=== PATIENT | female | born 1995 | race Caucasian/White ===

== ENCOUNTER 2017-05-29 14:59 | Emergency (ER) | payer BC, SELFPAY ==
[2017-05-29 15:17] VITALS: BP 136/81; PULSE 79; RESP 18; TEMP 36.9; O2SAT 98; BMI 21.6
--- NOTE | 2017-05-29 15:48 | [facility].EDABDPAI ---
ED Disposition Clinical Impression: Bloody diarrhea, External hemorrhoids, Left against medical advice Abdominal pain Qualifiers: Abdominal location: unspecified location Qualified Code(s): R10.9 - Unspecified abdominal pain Disposition: Left Against Medical Advice Condition on Discharge: Fair Instructions: DI for Acute Abdomen Additional Instructions: The patient was instructed to return if she changes her mind. Start her on antibiotic Cipro 500 mg p.o. twice daily. Patient was given Anusol suppositories. Soft diet. 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 - Critical Care Critical Care Time: No Attestation: On 05/29/17, the high probability of a clinically significant, sudden or life threatening deterioration of the following system(s) required my full and direct attention, intervention and personal management. The time I documented below is in addition to time spent performing reported procedures but includes the following listed in this critical care notation. Medical Decision Making Vital Signs: 05/29/17 15:17 Temperature 98.5 F Temperature Source Oral Pulse Rate [Right Brachial] 79 Respiratory Rate 18 Blood Pressure [Right Arm] 136/81 Blood Pressure Mean [Right Arm] 99 Blood Pressure Source [Right Arm] Automatic Cuff Blood Pressure Position [Right Arm] Sitting 02 Sat by Pulse Oximetry 98 Oxygen Delivery Method Room Air Orders (Tests/Meds): ED MEDICATIONS Generic Name Dose Route Start Last Admin Trade Name Freq PRN Reason Stop Dose Admin Sodium Chloride 1,000 mls @ 999 mls/hr 05/29/17 15:45 Sod Chloride 0.9% 1000ml Bag IV 05/29/17 16:45 .Q1H1M [facility] ORDERS Category Date Time Status CT Request abd/pelvis Stat Exams 05/29/17 15:44 Ordered Blood Urea Nitrogen Stat Lab 05/29/17 15:45 Ordered Complete Blood Count Auto Diff Stat Lab 05/29/17 15:44 Ordered Comprehensive Metabolic Panel Stat Lab 05/29/17 15:44 Ordered Creatinine,Serum Stat Lab 05/29/17 15:45 Ordered Diarrhea Panel, PCR Stat Lab 05/29/17 15:44 Ordered Lipase Stat Lab 05/29/17 15:44 Ordered - Phani Inquiry Pt receiving controlled substance: No Phani was queried for this patient: No Medical Decision Making Narrative: I had a full discussion with the patient about the differential diagnosis for her abdominal pain and bloody diarrhea including infectious causes. I did place orders for CT abdomen with IV contrast diarrhea panel CBC and CMP. I was approached by her nurse that she is asking to be treated for the external hemorrhoids and she will follow-up with her farm operator in [place]. I went back to the room discussed with the patient about various causes of her illness and she will sign AGAINST MEDICAL ADVICE, she is aware of risks and benefits. Abdominal Pain HPI - General Chief Complaint: Abdominal Pain Stated Complaint: ABDOMINAL PAIN Mode of Arrival: Ambulatory Source of Information: Patient Limitations: No Limitations Description of Symptoms (Recalled from ER Triage Doc. by RN): PT HAD AN EPISODE OF BLOODY DIARRHEA TODAY. PT STATES SHE HAS BEEN DIARRHEA AND STOMACH PAIN SINCE NEWS YEAR LISA. PAIN IS EPIGASTRIC TO LOWER QUAD PAIN RADIATING TO HER LEFT BACK. PT HAS HISTORY OF GI PROBLEMS AND WAS SUPPOSED TO GET HER GALLBLADDER CHECKED AND A CT SCAN OF HER ABDOMEN. - History of Present Illness HPI narrative: 21 years old white female with history of irritable bowel syndrome she is here from [place] for the holidays. Starting May 19 she developed upper abdominal pain with diarrhea 2-3 times a day associated with body aches. Until today when she developed bloody diarrhea. He became concerned she came to the ED. She denies recent fever vomiting hematemesis coffee-ground emesis chest pain palpitations shortness of breath. He denies dysuria or hematuria or frequency. MD complaint: abdominal pain Onset (ago): day(s) (11 days .) Consistency: in
--- NOTE | 2017-05-29 15:51 | ED_ITS ---
ED Disposition Clinical Impression: Bloody diarrhea, External hemorrhoids, Left against medical advice Abdominal pain Qualifiers: Abdominal location: unspecified location Qualified Code(s): R10.9 - Unspecified abdominal pain Disposition: Left Against Medical Advice Condition on Discharge: Fair Instructions: DI for Acute Abdomen Additional Instructions: The patient was instructed to return if she changes her mind. Start her on antibiotic Cipro 500 mg p.o. twice daily. Patient was given Anusol suppositories. Soft diet. 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 - Critical Care Critical Care Time: No Attestation: On 05/29/17, the high probability of a clinically significant, sudden or life threatening deterioration of the following system(s) required my full and direct attention, intervention and personal management. The time I documented below is in addition to time spent performing reported procedures but includes the following listed in this critical care notation. Medical Decision Making Vital Signs: 05/29/17 15:17 Temperature 98.5 F Temperature Source Oral Pulse Rate [Right Brachial] 79 Respiratory Rate 18 Blood Pressure [Right Arm] 136/81 Blood Pressure Mean [Right Arm] 99 Blood Pressure Source [Right Arm] Automatic Cuff Blood Pressure Position [Right Arm] Sitting 02 Sat by Pulse Oximetry 98 Oxygen Delivery Method Room Air Orders (Tests/Meds): ED MEDICATIONS Generic Name Dose Route Start Last Admin Trade Name Freq PRN Reason Stop Dose Admin Sodium Chloride 1,000 mls @ 999 mls/hr 05/29/17 15:45 Sod Chloride 0.9% 1000ml Bag IV 05/29/17 16:45 .Q1H1M [facility] ORDERS Category Date Time Status CT Request abd/pelvis Stat Exams 05/29/17 15:44 Ordered Blood Urea Nitrogen Stat Lab 05/29/17 15:45 Ordered Complete Blood Count Auto Diff Stat Lab 05/29/17 15:44 Ordered Comprehensive Metabolic Panel Stat Lab 05/29/17 15:44 Ordered Creatinine,Serum Stat Lab 05/29/17 15:45 Ordered Diarrhea Panel, PCR Stat Lab 05/29/17 15:44 Ordered Lipase Stat Lab 05/29/17 15:44 Ordered - Phani Inquiry Pt receiving controlled substance: No Phani was queried for this patient: No Medical Decision Making Narrative: I had a full discussion with the patient about the differential diagnosis for her abdominal pain and bloody diarrhea including infectious causes. I did place orders for CT abdomen with IV contrast diarrhea panel CBC and CMP. I was approached by her nurse that she is asking to be treated for the external hemorrhoids and she will follow-up with her camera machinist in [place]. I went back to the room discussed with the patient about various causes of her illness and she will sign AGAINST MEDICAL ADVICE, she is aware of risks and benefits. Abdominal Pain HPI - General Chief Complaint: Abdominal Pain Stated Complaint: ABDOMINAL PAIN Mode of Arrival: Ambulatory Source of Information: Patient Limitations: No Limitations Description of Symptoms (Recalled from ER Triage Doc. by RN): PT HAD AN EPISODE OF BLOODY DIARRHEA TODAY. PT STATES SHE HAS BEEN DIARRHEA AND STOMACH PAIN SINCE NEWS YEAR LISA. PAIN IS EPIGASTRIC TO LOWER QUAD PAIN RADIATING TO HER LEFT BACK. PT HAS HISTORY OF GI PROBLEMS AND WAS SUPPOSED TO GET HER GALLBLADDER CHECKED AND A CT
== END 2017-05-29 16:05 | disposition left against medical advice (07) ==
LOC: UTC 15:04 → ER 15:13
PROVIDERS: Emergency Provider Emergency Medicine
DX: R19.7 Diarrhea, unspecified (principal); K64.4 Residual hemorrhoidal skin tags
CPT/HCPCS: 99282